=== PATIENT | male | born 1995 | race African-American/Black ===

== ENCOUNTER 2020-10-10 09:32 | Emergency (ER) | payer MEDICAID ==
[~2020-10-10] VITALS: Ht 172.7 cm; Wt 93.0 kg
[2020-10-10 11:59] VITALS: BP 144/82
== END 2020-10-10 12:00 | disposition home or self-care (01) ==
LOC: ER 09:32
DX: Z04.89 Encounter for examination and observation for other specified reasons (principal); J45.909 Unspecified asthma, uncomplicated; Z98.890 Other specified postprocedural states
CPT/HCPCS: 99281